=== PATIENT | female | born 1960 | race Caucasian/White ===

== ENCOUNTER 2020-08-25 22:30 | Inpatient (IN) | payer SELFPAY ==
[2020-08-25 23:59] LABS: #Lymphocytes 1.3 thou/uL (1.20-3.40); #Monocytes 0.5 thou/uL (0.11-0.59); #Neutrophils 9.3 thou/uL (1.40-6.50); %Basophils 0.4 % (0.0-1.0); %Eosinophils 0.3 % (0.0-10.0); %Lymphocytes 11.3 % (21.0-51.0); %Monocytes 4.8 % (0.0-10.0); %Neutrophils 83.2 % (42.0-75.0); Hemoglobin 14.4 g/dL (12.0-16.0); Mean Corpuscular HGB CONC 34.1 g/dL (32.0-36.0); Mean Corpuscular Hemoglobin 31.7 pg (27.0-31.0); Mean Corpuscular Volume 92.9 fL (78.0-98.0); Mean Platelet Volume 7.4 fL (7.4-10.4); Platelet Count 291 thou/uL (130-400); RBC Distribution Width 12.2 % (11.5-14.5); Red Blood Cell (RBC) Count 4.54 mill/uL (4.20-5.40); White Blood Cell (WBC) Count 11.2 thou/uL (4.8-10.8)
[2020-08-26 00:20] LABS: ALT (SGPT) 1649 U/L (8-55); AST (SGOT) 2081 U/L (5-34); Albumin 3.5 g/dL (3.5-5.0); Alkaline Phosphatase 69 U/L (40-110); Anion Gap 14 mmol/L (10-20); BUN (Urea Nitrogen) 11 mg/dL (9.8-20.1); CK (CPK) 77 U/L (29-168); Calc. Creatinine Clearance 0 mL/min (70-130); Calcium 9.2 mg/dL (7.8-10.44); Carbon Dioxide 20 mmol/L (22-29); Chloride 106 mmol/L (98-107); Globulin 3.4 g/dL (2.4-3.5); Glucose 91 mg/dL (70-105); Lipase 14 U/L (8-78); Potassium 3.4 mmol/L (3.5-5.1); Protein, Total 6.9 g/dL (6.0-8.3); Sodium 137 mmol/L (136-145)
[2020-08-26 01:09] LABS: Bacteria/HPF None Seen HPF (None Seen); Bilirubin Negative (Negative); Blood, Urine 1+ (Negative); Clarity Clear (Clear); Glucose, Urine (Dipstick) Normal (Negative); Ketone, Urine 10 mg/dL (Negative); Leukocyte 25 Leu/uL (Negative); Nitrite Negative (Negative); Protein, Urine (Dipstick) 70 mg/dL (Neg-Trace); Specific Gravity, Urine 1.019 (1.002-1.036); Squamous Epithelial 0-3 HPF (0-3); pH, Urine 6.5 (5.0-9.0)
[2020-08-26 01:17] LABS: Amphetamine Not Detected (NotDetected); Barbiturates Screen Not Detected (NotDetected); Benzodiazepine Screen Not Detected (NotDetected); Cocaine Metabolite Screen Not Detected (NotDetected); Medtox Control Line Valid? VALID (VALID); Medtox Reader # READER 4; Methadone Not Detected (NotDetected); Methamphetamine Not Detected (NotDetected); Opiate Screen Not Detected (NotDetected); Oxycodone Screen Not Detected (NotDetected); Phencyclidine (PCP) Not Detected (NotDetected); THC/Cannabinoid Screen Not Detected (NotDetected); Tricyclic Screen Not Detected (NotDetected)
[2020-08-26 01:41] LABS: Acetaminophen Less than 6.0 mcg/mL (10.0-30.0); Alcohol Less than 10 mg/dL (Less than 10); Salicylate Less than 8.0 mg/dL (15.0-30.0)
[2020-08-26] MEDS ORDERED: Ondansetron PF 4 MG/2 ML Vial IVP PRN (02:59)
[2020-08-26] MEDS ORDERED: Potassium Chloride 20 MEQ TAB PO SCH (03:15)
[2020-08-26] MEDS ORDERED: hydrALAZINE 20 MG/ML VIAL SLOW IVP PRN (03:25)
[2020-08-26 04:07] VITALS: BMI 29.2
[2020-08-26] MEDS: Cefepime 1 GM in Sodium Chloride 0.9% 100 ML IVPB SCH ×2 (04:45→17:49)
[2020-08-26] MEDS ORDERED: Magnesium 2 GM/50 ML 2 GM in Premix Bag 1 BAG IVPB SCH (04:45)
[2020-08-26 05:27] LABS: INR-International Normal Ratio 1.2; Prothrombin Time 15.6 sec (12.0-14.7)
[2020-08-26 05:28] LABS: PTT 30.4 sec (22.9-36.1)
[2020-08-26 05:36] LABS: ALT (SGPT) 1714 U/L (8-55); AST (SGOT) 1912 U/L (5-34); Albumin 3.4 g/dL (3.5-5.0); Alkaline Phosphatase 66 U/L (40-110); Bilirubin, Direct 0.4 mg/dL (0.1-0.3); Bilirubin, Total 0.8 mg/dL (0.2-1.2); Protein, Total 6.5 g/dL (6.0-8.3)
[2020-08-26] MEDS ORDERED: Promethazine HCl 12.5 MG in Sodium Chloride 0.9% 50 ML IVPB SCH (05:45)
[2020-08-26 05:54] LABS: SARS-CoV-2 NAA Rapid Test Not Detected (NotDetected)
[2020-08-26 05:57] LABS: HBCM Index 0.08 S/CO (0-0.79); HBSAg Index 0.23 S/CO (0-0.99); Hep A IgM AB Non-Reactive (NonReactive); Hep A IgM S/CO 0.15 S/CO (0-0.79); Hep B Surf Ag Non-Reactive S/CO (NonReactive); Hepatitis B Core IgM Abs Non-Reactive (NonReactive)
[2020-08-26] MEDS ORDERED: Promethazine 25 MG TAB PO SCH (06:00)
[2020-08-26 06:01] LABS: Hep C IgG Ab Reflex HepC Qnt (NonReactive); Hep C Index 13.65 S/CO (0-0.79)
[2020-08-26] MEDS ORDERED: Ibuprofen 100 MG/5 ML UDCUP PO SCH (06:15)
[2020-08-26] MEDS ORDERED: Losartan 25 MG TAB PO SCH (09:00)
[2020-08-26] MEDS ORDERED: Sodium Chloride 0.9% 1,000 ML IV SCH (13:30)
[2020-08-26] MEDS ORDERED: Naproxen 500 MG TAB PO SCH (16:00)
[2020-08-26] MEDS ORDERED: diphenhydrAMINE 25 MG CAP PO SCH (18:00)
[2020-08-26] MEDS ORDERED: Promethazine 25 MG TAB PO PRN (20:09)
[2020-08-26] MEDS ORDERED: diphenhydrAMINE 25 MG CAP PO PRN (20:09)
[2020-08-27 04:41] VITALS: BP 132/72; TEMP 97.5
[2020-08-27 21:36] LABS: Alpha-1-Antitrypsin 231 mg/dL (101-187)
[2020-08-28 16:09] LABS: ANA Symphony (Qualitative) Negative (Negative); ANA Symphony (Quantitative) 0.2 Ratio (< 0.7 Negative)
[2020-08-28 17:10] LABS: EliA Vaculitis New Method **** NEW METHOD ****; Mitochondrial Ab 0.9 U/mL (<4 Negative)
[2020-08-28 19:36] LABS: HCV log10 5.387 (.); Hep C PCR-Quant 244000 IU/mL (.)
[2020-08-29 12:37] LABS: Smooth Muscle Total ABS 11 Units (0-19)
== END 2020-08-27 04:35 | disposition left against medical advice (07) | DRG 392 ==
LOC: ERS 22:30 → 2SW 23:26 → OBSVTOIN 08-26 12:29 → SURG A 08-26 14:18
PROVIDERS: ADMIT Internal Medicine; ATTEND Internal Medicine
DX: R11.2 Nausea with vomiting, unspecified (principal); N13.6 Pyonephrosis; I10 Essential (primary) hypertension; F41.9 Anxiety disorder, unspecified; G51.0 Bell's palsy; K76.0 Fatty (change of) liver, not elsewhere classified; K75.89 Other specified inflammatory liver diseases; R74.8 Abnormal levels of other serum enzymes; E87.6 Hypokalemia; R19.7 Diarrhea, unspecified; E86.0 Dehydration; R74.01 Elevation of levels of liver transaminase levels; Z20.822 Contact with and (suspected) exposure to COVID-19; K76.89 Other specified diseases of liver; Z88.0 Allergy status to penicillin; Z79.899 Other long term (current) drug therapy; Z90.49 Acquired absence of other specified parts of digestive tract; Z87.891 Personal history of nicotine dependence
CPT/HCPCS: 36415; 74177; 80053; 80074; 80076; 80306; 80307; 81003; 81015; 82103; 82140; 82550; 83516; 83615; 83630; 83690; 83735; 85025; 85610; 85730; 86038; 86225; 87045; 87046; 87086; 87324; 87328; 87329; 87427; 87449; 87493; 87522; 96365; 96375; G0378; J0692; J3475; J3490; Q0163; Q0169; U0002; U0005